=== PATIENT | female | born 1995 | race Caucasian/White ===

== ENCOUNTER 2017-02-20 01:59 | Emergency (ER) | payer OTHER, BC ==
--- NOTE | 2017-02-20 06:11 | ER ---
ADMIT: 02/20/2017 RM/LOC: ER [facility] MR#: [id number] [id number] [place], [place] [id number] ABY PHILIP [address] [place] [id number] Emergency Room Report SEX: F AGE: 21 : 1995 DATE: 02/20/2017 The patient is a 21-year-old [facility], [facility] brow laceration when she hit the roll bar. No loss of conscious, neck pain, or focal deficit. Exam remarkable for nontoxic, afebrile female with 2.5 cm laceration left brow exposing the skull. CT head and MFO negative for fracture or intracranial injury. Wound was anesthetized. Xylocaine 1% irrigated, scrubbed with Hibiclens, Betadine prep, 5-0 Prolene 4, bacitracin, and Band-Aid. Follow up Dr. Nobles 5 to 6 days. Suture removal. Sunblock SPF 15 or greater for 6 months. Hieu Zambrano MD/ evan JOB #: [id number] CC: Hieu Zambrano MD, Attending Physician Trevor Nobles MD
== END 2017-02-20 04:36 | disposition home or self-care (01) ==
LOC: ER 01:59
PROC: 0HQ1XZZ Repair Face Skin, External Approach (ICD-10-PCS; principal; 2017-02-20)
DX: S01.81XA Laceration without foreign body of other part of head, initial encounter (principal); Z23 Encounter for immunization; W22.8XXA Striking against or struck by other objects, initial encounter